=== PATIENT | male | born 1980 | race American Indian/Alaskan Native ===

== ENCOUNTER 2016-10-08 16:41 | Emergency (ER) | payer BC ==
[2016-10-08] MEDS ORDERED: NACL 0.9% 1000 ML 1,000 ML IV ONE (17:22)
[2016-10-08] MEDS ORDERED: ACTIDOSE-AQUA PO ONE (17:25)
[2016-10-08 17:37] LABS: Basophils % (Auto) 0.4 % (0.0-1.8); Hematocrit 45.1 % (35.5-45.6); Hemoglobin 14.6 gm/dl (11.8-15.2); Mean Corpuscular HGB Conc 33 % (32-34); Mean Corpuscular Hemoglobin 29 pg (28-32); Mean Corpuscular Volume 89 fl (84-94); Platelet Count 259 K/mm3 (140-440); Red Blood Count 5.07 M/mm3 (3.65-5.03); Red Cell Distribution Width 13.3 % (13.2-15.2); White Blood Count 15.1 K/mm3 (4.5-11.0)
[2016-10-08 17:47] LABS: Anion Gap 16 mmol/L; Blood Urea Nitrogen 9 mg/dL (9-20); Carbon Dioxide 30 mmol/L (22-30); Chloride 98.6 mmol/L (98-107); Glucose 94 mg/dL (75-100); Potassium 4.1 mmol/L (3.6-5.0); Sodium 140 mmol/L (137-145)
[2016-10-08 17:51] LABS: Alanine Aminotransferase 19 units/L (7-56); Albumin 3.7 g/dL (3.9-5); Albumin/Globulin Ratio 1.1 %; Alkaline Phosphatase 81 units/L (35-129); Total Protein 7.1 g/dL (6.3-8.2)
[2016-10-08 17:53] LABS: Urine Drugs of Abuse Note Disclamer
[2016-10-08 17:57] LABS: Bilirubin,Direct < 0.2 mg/dL (0-0.2); Bilirubin,Indirect 0.4 mg/dL; Salicylate < 0.3 mg/dL (2.8-20.0); Valproate 5.7 ug/mL (50-100)
[2016-10-08 18:07] LABS: Bilirubin,Urine NEG (Negative); Blood,Urine NEG (Negative); Ketones,Urine NEG (Negative); Leukocyte Esterase,Urine NEG (Negative); Mucus,Urine FEW /HPF; Nitrite,Urine NEG (Negative); Protein,Urine <15 mg/dL mg/dL (Negative)
--- NOTE | 2016-10-09 00:18 | Emergency Department Report ---
HPI - General Chief Complaint: Overdose Time Seen by Provider: 10/08/16 17:08 - HPI HPI: The patient is a 36-year-old male presents for evaluation of mental health. The patient reports intensely consuming 10 tablets of Depakote in an attempt to harm himself. He states that for the past 24 hrs he has experienced severe and constant sadness, exacerbated with arguing with his significant other. The patient denies fever, headache, unexplained weight loss or weight gain, heat or cold intolerance, skin, hair, or nail changes, neuro deficits, homicidal ideations, or auditory or visual hallucinations. ED Past Medical Hx - Past Medical History Previous Medical History?: Yes Hx Hypertension: Yes Hx Deep Vein Thrombosis: Yes Hx Headaches / Migraines: Yes (cluster lau) Additional medical history: superficial blood clots - Surgical History Past Surgical History?: Yes - Social History Smoking Status: Current Every Day Smoker Substance Use Type: None ED Review of Systems ROS: Stated complaint: POSS OD Other details as noted in HPI Constitutional: denies: fever ENT: denies: throat or neck pain Respiratory: denies: cough, shortness of breath Cardiovascular: denies: chest pain Endocrine: denies unexplained weight loss or gain Gastrointestinal: denies: abdominal pain, nausea Genitourinary: denies: dysuria Musculoskeletal: denies: leg swelling Skin: denies: rash Neurological: denies: headache Hematological/Lymphatic: denies: easy bleeding or easy bruising Psych: reports sadness or hopelessness Physical Exam - Physical Exam Vital Signs: Vital Signs 10/08/16 10/08/16 10/08/16 17:48 19:14 19:16 Temperature Pulse Rate 67 65 Respiratory 16 16 14 Rate Blood Pressure O2 Sat by Pulse 98 100 99 Oximetry 10/08/16 10/08/16 10/08/16 19:18 19:20 19:22 Temperature Pulse Rate 64 66 67 Respiratory 17 16 17 Rate Blood Pressure O2 Sat by Pulse 98 99 98 Oximetry 10/08/16 10/08/16 10/08/16 19:24 19:26 19:28 Temperature Pulse Rate 64 67 66 Respiratory 18 15 22 Rate Blood Pressure O2 Sat by Pulse 98 98 95 Oximetry 10/08/16 10/08/16 10/08/16 19:30 19:32 19:34 Temperature Pulse Rate 67 62 66 Respiratory 15 21 16 Rate Blood Pressure O2 Sat by Pulse 98 96 96 Oximetry 10/08/16 10/08/16 10/08/16 19:36 19:38 19:40 Temperature Pulse Rate 67 66 64 Respiratory 17 17 18 Rate Blood Pressure O2 Sat by Pulse 96 98 98 Oximetry 10/08/16 10/08/16 10/08/16 19:42 19:44 19:46 Temperature Pulse Rate 68 67 70 Respiratory 16 19 18 Rate Blood Pressure O2 Sat by Pulse 95 95 98 Oximetry 10/08/16 10/08/16 10/08/16 19:48 19:50 19:52 Temperature Pulse Rate 67 68 65 Respiratory 15 17 11 L Rate Blood Pressure O2 Sat by Pulse 95 95 99 Oximetry 10/08/16 10/08/16 10/08/16 19:54 19:56 19:58 Temperature Pulse Rate 66 65 64 Respiratory 13 18 13 Rate Blood Pressure O2 Sat by Pulse 97 99 98 Oximetry 10/08/16 10/08/16 10/08/16 20:00 20:02 20:04 Temperature Pulse Rate 71 75 78 Respiratory 18 18 25 H Rate Blood Pressure O2 Sat by Pulse 97 97 96 Oximetry 10/08/16 10/08/16 10/08/16 20:06 20:08 20:10 Temperature Pulse Rate 85 74 74 Respiratory 21 16 19 Rate Blood Pressure O2 Sat by Pulse 97 99 98 Oximetry 10/08/16 10/08/16 10/08/16 20:12 20:14 20:15 Temperature Pulse Rate 66 68 73 Respiratory 16 13 25 H Rate Blood Pressure 138/76 145/74 O2 Sat by Pulse 97 99 98 Oximetry 10/08/16 10/08/16 10/08/16 20:16 20:18 20:20 Temperature Pulse Rate 71 69 64 Respiratory 26 H 18 19 Rate Blood Pressure 145/74 145/74 145/74 O2 Sat by Pulse 96 96 96 Oximetry 10/08/16 10/08/16 10/08/16 20:22 20:23 20:24 Temperature Pulse Rate 74 72 67 Respiratory 17 15 14 Rate Blood Pressure 145/74 145/74 145/74 O2 Sat by Pulse 96 98 98 Oximetry 10/08/16 10/08/16 10/08/16 20:26 20:28 20:30 Temperature Pulse Rate 70 68 70 Respiratory 26 H 17 17 Rate Blood Pressure 145/74 145/74 145/74 O2 Sat by Pulse 94 97 94 Oximetry 10/08/16 10/08/16 10/08/16 20:32 20:34 20:36 Temperature Pulse Rate 60 63 64 Respiratory 12 15 17 Rate Blood Pressure 145/74 145/74 145/74 O2 Sat by Pulse 98 96 98 Oximetry 10/08/16 10/08/16 10/08/16 20:38 20:40 20:42 Temperature Pulse Rate 57 L 62 64 Respiratory 19 22 20 Rate Blood Pressure 145/74 145/74 145/74 O2 Sat by Pulse 98 91 96 Oximetry 10/08/16 10/08/16 10/08/16 20:44 20:46 20:48 Temperature Pulse Rate 63 63 64 Respiratory 13 13 17 Rate Blood Pressure 145/74 145/74 145/74 O2 Sat by Pulse 100 97 96 Oximetry 10/08/16 10/08/16 10/08/16 20:50 20:52 20:54 Temperature Pulse Rate 65 60 64 Respiratory 16 18 12 Rate Blood Pressure 145/74 145/74 145/74 O2 Sat by Pulse 99 98 97 Oximetry 10/08/16 10/08/16 10/08/16 20:56 20:58 21:00 Temperature Pulse Rate 62 61 60 Respiratory 12 13 14 Rate Blood Pressure 145/74 145/74 147/81 O2 Sat by Pulse 99 98 98 Oximetry 10/08/16 10/08/16 10/08/16 21:01 21:02 21:04 Temperature 98.2 F Pulse Rate 61 58 L 62 Respiratory 15 18 13 Rate Blood Pressure 147/81 147/81 147/81 O2 Sat by Pulse 98 96 99 Oximetry 10/08/16 10/08/16 10/08/16 21:06 21:08 21:10 Temperature Pulse Rate 58 L 66 61 Respiratory 23 22 20 Rate Blood Pressure 147/81 147/81 147/81 O2 Sat by Pulse 95 96 98 Oximetry 10/08/16 10/08/16 10/08/16 21:12 21:14 21:16 Temperature Pulse Rate 63 62 61 Respiratory 19 19 19 Rate Blood Pressure 147/81 147/81 147/81 O2 Sat by Pulse 100 97 93 Oximetry 10/08/16 10/08/16 10/08/16 21:18 21:20 21:22 Temperature Pulse Rate 63 63 64 Respiratory 21 18 15 Rate Blood Pressure 147/81 147/81 147/81 O2 Sat by Pulse 96 97 98 Oximetry 10/08/16 10/08/16 10/08/16 21:24 21:26 21:28 Temperature Pulse Rate 60 64 59 L Respiratory 18 21 21 Rate Blood Pressure 147/81 147/81 147/81 O2 Sat by Pulse 98 97 91 Oximetry 10/08/16 10/08/16 10/08/16 21:30 21:32 21:34 Temperature Pulse Rate 62 63 60 Respiratory 20 22 22 Rate Blood Pressure 147/81 147/81 147/81 O2 Sat by Pulse 98 94 96 Oximetry 10/08/16 10/08/16 10/08/16 21:36 21:38 21:40 Temperature Pulse Rate 55 L 62 61 Respiratory 12 27 H 21 Rate Blood Pressure 147/81 147/81 147/81 O2 Sat by Pulse 98 94 96 Oximetry 10/08/16 10/08/16 10/08/16 21:42 21:44 21:46 Temperature Pulse Rate 58 L 60 62 Respiratory 19 20 27 H Rate Blood Pressure 147/81 147/81 147/81 O2 Sat by Pulse 97 97 95 Oximetry 10/08/16 10/08/16 10/08/16 21:48 21:50 21:52 Temperature Pulse Rate 59 L 60 58 L Respiratory 22 16 19 Rate Blood Pressure 147/81 147/81 147/81 O2 Sat by Pulse 96 99 97 Oximetry 10/08/16 10/08/16 10/08/16 21:54 21:56 21:58 Temperature Pulse Rate 58 L 62 60 Respiratory 23 17 20 Rate Blood Pressure 147/81 147/81 147/81 O2 Sat by Pulse 96 97 100 Oximetry 10/08/16 10/08/16 10/08/16 22:00 22:01 22:02 Temperature Pulse Rate 63 58 L 57 L Respiratory 10 L 19 12 Rate Blood Pressure 136/81 136/81 136/81 O2 Sat by Pulse 99 99 99 Oximetry 10/08/16 10/08/16 10/08/16 22:04 22:06 22:08 Temperature Pulse Rate 63 59 L 65 Respiratory 22 12 15 Rate Blood Pressure 136/81 136/81 136/81 O2 Sat by Pulse 97 100 100 Oximetry 10/08/16 10/08/16 10/08/16 22:10 22:12 22:14 Temperature Pulse Rate 59 L 59 L 57 L Respiratory 20 22 13 Rate Blood Pressure 136/81 136/81 136/81 O2 Sat by Pulse 95 96 99 Oximetry 10/08/16 10/08/16 10/08/16 22:16 22:18 22:20 Temperature Pulse Rate 63 62 80 Respiratory 11 L 11 L 14 Rate Blood Pressure 136/81 136/81 136/81 O2 Sat by Pulse 99 99 66 L Oximetry 10/08/16 10/08/16 10/08/16 22:22 22:24 22:26 Temperature Pulse Rate 61 59 L 58 L Respiratory 16 12 11 L Rate Blood Pressure 136/81 136/81 136/81 O2 Sat by Pulse 98 99 100 Oximetry 10/08/16 10/08/16 10/08/16 22:28 22:30 22:32 Temperature Pulse Rate 65 65 69 Respiratory 16 17 11 L Rate Blood Pressure 136/81 136/81 136/81 O2 Sat by Pulse 99 100 100 Oximetry 10/08/16 10/08/16 10/08/16 22:34 22:36 22:38 Temperature Pulse Rate 67 64 60 Respiratory 12 11 L 11 L Rate Blood Pressure 136/81 136/81 136/81 O2 Sat by Pulse 100 99 97 Oximetry 10/08/16 10/08/16 10/08/16 22:40 22:42 22:44 Temperature Pulse Rate 59 L 61 62 Respiratory 16 12 14 Rate Blood Pressure 136/81 136/81 136/81 O2 Sat by Pulse 96 96 98 Oximetry 10/08/16 10/08/16 10/08/16 22:46 22:48 22:50 Temperature Pulse Rate 56 L 56 L 61 Respiratory 12 12 17 Rate Blood Pressure 136/81 136/81 136/81 O2 Sat by Pulse 93 95 98 Oximetry 10/08/16 10/08/16 10/08/16 22:52 22:54 22:56 Temperature Pulse Rate 58 L 65 60 Respiratory 18 20 16 Rate Blood Pressure 136/81 136/81 136/81 O2 Sat by Pulse 97 96 96 Oximetry 10/08/16 10/08/16 10/08/16 22:58 23:00 23:02 Temperature Pulse Rate 62 61 61 Respiratory 11 L 16 12 Rate Blood Pressure 136/81 130/75 130/75 O2 Sat by Pulse 97 98 99 Oximetry 10/08/16 10/08/16 10/08/16 23:04 23:06 23:08 Temperature Pulse Rate 57 L 60 60 Respiratory 13 12 14 Rate Blood Pressure 130/75 130/75 130/75 O2 Sat by Pulse 99 98 98 Oximetry 10/08/16 10/08/16 10/08/16 23:10 23:12 23:14 Temperature Pulse Rate 82 82 70 Respiratory 11 L 18 14 Rate Blood Pressure 130/75 130/75 130/75 O2 Sat by Pulse 100 98 100 Oximetry 10/08/16 10/08/16 23:16 23:18 Temperature Pulse Rate 66 73 Respiratory 13 14 Rate Blood Pressure 130/75 130/75 O2 Sat by Pulse 98 98 Oximetry Physical Exam: General: well-nourished, well-developed, no acute distress Head: Normocephalic, atraumatic Eyes: normal sclera ENT: Mucous membranes are pale and dry Neck: trachea midline, neck supple, No neck stiffness, no cervical adenopathy Respiratory: Breath sounds equal bilaterally, no wheezing, rales, or rhonchi Cardio: S1 and S2 present, no murmurs, rubs, gallops, capillary refill is delayed Abdomen: Normoactive bowel sounds, soft abdomen, no rigidity, no guarding or rebound tenderness Musc: No pitting edema Skin: No rash Neuro: no facial drooping, normal speech Psych: Flat affect, depressed mood, poor insight, positive suicidal ideation ED Course Vital Signs 10/08/16 10/08/16 10/08/16 17:48 19:14 19:16 Temperature Pulse Rate 67 65 Respiratory 16 16 14 Rate Blood Pressure O2 Sat by Pulse 98 100 99 Oximetry 10/08/16 10/08/16 10/08/16 19:18 19:20 19:22 Temperature Pulse Rate 64 66 67 Respiratory 17 16 17 Rate Blood Pressure O2 Sat by Pulse 98 99 98 Oximetry 10/08/16 10/08/16 10/08/16 19:24 19:26 19:28 Temperature Pulse Rate 64 67 66 Respiratory 18 15 22 Rate Blood Pressure O2 Sat by Pulse 98 98 95 Oximetry 10/08/16 10/08/16 10/08/16 19:30 19:32 19:34 Temperature Pulse Rate 67 62 66 Respiratory 15 21 16 Rate Blood Pressure O2 Sat by Pulse 98 96 96 Oximetry 10/08/16 10/08/16 10/08/16 19:36 19:38 19:40 Temperature Pulse Rate 67 66 64 Respiratory 17 17 18 Rate Blood Pressure O2 Sat by Pulse 96 98 98 Oximetry 10/08/16 10/08/16 10/08/16 19:42 19:44 19:46 Temperature Pulse Rate 68 67 70 Respiratory 16 19 18 Rate Blood Pressure O2 Sat by Pulse 95 95 98 Oximetry 10/08/16 10/08/16 10/08/16 19:48 19:50 19:52 Temperature Pulse Rate 67 68 65 Respiratory 15 17 11 L Rate Blood Pressure O2 Sat by Pulse 95 95 99 Oximetry 10/08/16 10/08/16 10/08/16 19:54 19:56 19:58 Temperature Pulse Rate 66 65 64 Respiratory 13 18 13 Rate Blood Pressure O2 Sat by Pulse 97 99 98 Oximetry 10/08/16 10/08/16 10/08/16 20:00 20:02 20:04 Temperature Pulse Rate 71 75 78 Respiratory 18 18 25 H Rate Blood Pressure O2 Sat by Pulse 97 97 96 Oximetry 10/08/16 10/08/16 10/08/16 20:06 20:08 20:10 Temperature Pulse Rate 85 74 74 Respiratory 21 16 19 Rate Blood Pressure O2 Sat by Pulse 97 99 98 Oximetry 10/08/16 10/08/16 10/08/16 20:12 20:14 20:15 Temperature Pulse Rate 66 68 73 Respiratory 16 13 25 H Rate Blood Pressure 138/76 145/74 O2 Sat by Pulse 97 99 98 Oximetry 10/08/16 10/08/16 10/08/16 20:16 20:18 20:20 Temperature Pulse Rate 71 69 64 Respiratory 26 H 18 19 Rate Blood Pressure 145/74 145/74 145/74 O2 Sat by Pulse 96 96 96 Oximetry 10/08/16 10/08/16 10/08/16 20:22 20:23 20:24 Temperature Pulse Rate 74 72 67 Respiratory 17 15 14 Rate Blood Pressure 145/74 145/74 145/74 O2 Sat by Pulse 96 98 98 Oximetry 10/08/16 10/08/16 10/08/16 20:26 20:28 20:30 Temperature Pulse Rate 70 68 70 Respiratory 26 H 17 17 Rate Blood Pressure 145/74 145/74 145/74 O2 Sat by Pulse 94 97 94 Oximetry 10/08/16 10/08/16 10/08/16 20:32 20:34 20:36 Temperature Pulse Rate 60 63 64 Respiratory 12 15 17 Rate Blood Pressure 145/74 145/74 145/74 O2 Sat by Pulse 98 96 98 Oximetry 10/08/16 10/08/16 10/08/16 20:38 20:40 20:42 Temperature Pulse Rate 57 L 62 64 Respiratory 19 22 20 Rate Blood Pressure 145/74 145/74 145/74 O2 Sat by Pulse 98 91 96 Oximetry 10/08/16 10/08/16 10/08/16 20:44 20:46 20:48 Temperature Pulse Rate 63 63 64 Respiratory 13 13 17 Rate Blood Pressure 145/74 145/74 145/74 O2 Sat by Pulse 100 97 96 Oximetry 10/08/16 10/08/16 10/08/16 20:50 20:52 20:54 Temperature Pulse Rate 65 60 64 Respiratory 16 18 12 Rate Blood Pressure 145/74 145/74 145/74 O2 Sat by Pulse 99 98 97 Oximetry 10/08/16 10/08/16 10/08/16 20:56 20:58 21:00 Temperature Pulse Rate 62 61 60 Respiratory 12 13 14 Rate Blood Pressure 145/74 145/74 147/81 O2 Sat by Pulse 99 98 98 Oximetry 10/08/16 10/08/16 10/08/16 21:01 21:02 21:04 Temperature 98.2 F Pulse Rate 61 58 L 62 Respiratory 15 18 13 Rate Blood Pressure 147/81 147/81 147/81 O2 Sat by Pulse 98 96 99 Oximetry 10/08/16 10/08/16 10/08/16 21:06 21:08 21:10 Temperature Pulse Rate 58 L 66 61 Respiratory 23 22 20 Rate Blood Pressure 147/81 147/81 147/81 O2 Sat by Pulse 95 96 98 Oximetry 10/08/16 10/08/16 10/08/16 21:12 21:14 21:16 Temperature Pulse Rate 63 62 61 Respiratory 19 19 19 Rate Blood Pressure 147/81 147/81 147/81 O2 Sat by Pulse 100 97 93 Oximetry 10/08/16 10/08/16 10/08/16 21:18 21:20 21:22 Temperature Pulse Rate 63 63 64 Respiratory 21 18 15 Rate Blood Pressure 147/81 147/81 147/81 O2 Sat by Pulse 96 97 98 Oximetry 10/08/16 10/08/16 10/08/16 21:24 21:26 21:28 Temperature Pulse Rate 60 64 59 L Respiratory 18 21 21 Rate Blood Pressure 147/81 147/81 147/81 O2 Sat by Pulse 98 97 91 Oximetry 10/08/16 10/08/16 10/08/16 21:30 21:32 21:34 Temperature Pulse Rate 62 63 60 Respiratory 20 22 22 Rate Blood Pressure 147/81 147/81 147/81 O2 Sat by Pulse 98 94 96 Oximetry 10/08/16 10/08/16 10/08/16 21:36 21:38 21:40 Temperature Pulse Rate 55 L 62 61 Respiratory 12 27 H 21 Rate Blood Pressure 147/81 147/81 147/81 O2 Sat by Pulse 98 94 96 Oximetry 10/08/16 10/08/16 10/08/16 21:42 21:44 21:46 Temperature Pulse Rate 58 L 60 62 Respiratory 19 20 27 H Rate Blood Pressure 147/81 147/81 147/81 O2 Sat by Pulse 97 97 95 Oximetry 10/08/16 10/08/16 10/08/16 21:48 21:50 21:52 Temperature Pulse Rate 59 L 60 58 L Respiratory 22 16 19 Rate Blood Pressure 147/81 147/81 147/81 O2 Sat by Pulse 96 99 97 Oximetry 10/08/16 10/08/16 10/08/16 21:54 21:56 21:58 Temperature Pulse Rate 58 L 62 60 Respiratory 23 17 20 Rate Blood Pressure 147/81 147/81 147/81 O2 Sat by Pulse 96 97 100 Oximetry 10/08/16 10/08/16 10/08/16 22:00 22:01 22:02 Temperature Pulse Rate 63 58 L 57 L Respiratory 10 L 19 12 Rate Blood Pressure 136/81 136/81 136/81 O2 Sat by Pulse 99 99 99 Oximetry 10/08/16 10/08/16 10/08/16 22:04 22:06 22:08 Temperature Pulse Rate 63 59 L 65 Respiratory 22 12 15 Rate Blood Pressure 136/81 136/81 136/81 O2 Sat by Pulse 97 100 100 Oximetry 10/08/16 10/08/16 10/08/16 22:10 22:12 22:14 Temperature Pulse Rate 59 L 59 L 57 L Respiratory 20 22 13 Rate Blood Pressure 136/81 136/81 136/81 O2 Sat by Pulse 95 96 99 Oximetry 10/08/16 10/08/16 10/08/16 22:16 22:18 22:20 Temperature Pulse Rate 63 62 80 Respiratory 11 L 11 L 14 Rate Blood Pressure 136/81 136/81 136/81 O2 Sat by Pulse 99 99 66 L Oximetry 10/08/16 10/08/16 10/08/16 22:22 22:24 22:26 Temperature Pulse Rate 61 59 L 58 L Respiratory 16 12 11 L Rate Blood Pressure 136/81 136/81 136/81 O2 Sat by Pulse 98 99 100 Oximetry 10/08/16 10/08/16 10/08/16 22:28 22:30 22:32 Temperature Pulse Rate 65 65 69 Respiratory 16 17 11 L Rate Blood Pressure 136/81 136/81 136/81 O2 Sat by Pulse 99 100 100 Oximetry 10/08/16 10/08/16 10/08/16 22:34 22:36 22:38 Temperature Pulse Rate 67 64 60 Respiratory 12 11 L 11 L Rate Blood Pressure 136/81 136/81 136/81 O2 Sat by Pulse 100 99 97 Oximetry 10/08/16 10/08/16 10/08/16 22:40 22:42 22:44 Temperature Pulse Rate 59 L 61 62 Respiratory 16 12 14 Rate Blood Pressure 136/81 136/81 136/81 O2 Sat by Pulse 96 96 98 Oximetry 10/08/16 10/08/16 10/08/16 22:46 22:48 22:50 Temperature Pulse Rate 56 L 56 L 61 Respiratory 12 12 17 Rate Blood Pressure 136/81 136/81 136/81 O2 Sat by Pulse 93 95 98 Oximetry 10/08/16 10/08/16 10/08/16 22:52 22:54 22:56 Temperature Pulse Rate 58 L 65 60 Respiratory 18 20 16 Rate Blood Pressure 136/81 136/81 136/81 O2 Sat by Pulse 97 96 96 Oximetry 10/08/16 10/08/16 10/08/16 22:58 23:00 23:02 Temperature Pulse Rate 62 61 61 Respiratory 11 L 16 12 Rate Blood Pressure 136/81 130/75 130/75 O2 Sat by Pulse 97 98 99 Oximetry 10/08/16 10/08/16 10/08/16 23:04 23:06 23:08 Temperature Pulse Rate 57 L 60 60 Respiratory 13 12 14 Rate Blood Pressure 130/75 130/75 130/75 O2 Sat by Pulse 99 98 98 Oximetry 10/08/16 10/08/16 10/08/16 23:10 23:12 23:14 Temperature Pulse Rate 82 82 70 Respiratory 11 L 18 14 Rate Blood Pressure 130/75 130/75 130/75 O2 Sat by Pulse 100 98 100 Oximetry 10/08/16 10/08/16 23:16 23:18 Temperature Pulse Rate 66 73 Respiratory 13 14 Rate Blood Pressure 130/75 130/75 O2 Sat by Pulse 98 98 Oximetry ED Medical Decision Making - Lab Data Result diagrams: 10/08/16 17:16 10/08/16 17:16 - Medical Decision Making The patient was seen and examined by myself. The patient is placed on a threat monitoring analyst and continuous pulse ox. On initial evaluation, the patient was found to be in no distress. Evaluation orders are placed. IV access is established and the patient is given 1 L normal saline fluid bolus for she would 've dehydration. Lab results were non-concerning including WBC, hemoglobin, hematocrit, electrolytes, renal function, LFTs, lipase, and urinalysis. Poison control was contacted. They recommended repeat Depakote level at least 4 hours after ingestion. Repeat Depakote level is obtained. Repeat Depakote level is revealed to be 47, below concerning range. Poison control recommended repeat depakote levels until no longer up trending. 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 10/09 1600: Patient repeat depakote levels no longer up trending and is now down trending to 66 from 71. Additionally, ammonia level no longer up trending. The patient is now medically clear. Mental health is consulted. Mental health evaluated the patient and agrees that the patient is at risk of harm to self. A 1013 is completed. The patient will be admitted to a psychiatric facility once bed placement is obtained. Critical care attestation.: If time is entered above; I have spent that time in minutes in the direct care of this critically ill patient, excluding procedure time. ED Disposition Clinical Impression: Suicidal behavior with attempted self-injury, Dehydration Disposition: DC/TX PSY HOSP/PSY UNIT Is pt being admited?: No Does the pt Need Aspirin: No Condition: Stable Referrals: PRIMARY CARE, [Primary Care Provider] - 3-5 Days Time of Disposition: 00:41
[2016-10-09 02:32] LABS: Alanine Aminotransferase 17 units/L (7-56); Albumin 3.4 g/dL (3.9-5); Albumin/Globulin Ratio 1.1 %; Alkaline Phosphatase 72 units/L (35-129); Total Protein 6.6 g/dL (6.3-8.2)
[2016-10-09 02:38] LABS: Bilirubin,Direct < 0.2 mg/dL (0-0.2); Bilirubin,Indirect 0.6 mg/dL
[2016-10-09] MEDS ORDERED: ALUM-MAG HYDROX-SIMETH 200-200-20MG/5ML PO PRN (02:45)
[2016-10-09] MEDS ORDERED: MILK OF MAGNESIA PO PRN (02:45)
[2016-10-09] MEDS ORDERED: ATIVAN IV PRN (02:45)
--- NOTE | 2016-10-09 12:02 | Consultation ---
History of Present Illness - Reason for Consult Consult date: 10/09/16 Reason for consult: Mental Health Evaluation Requesting physician: MARC QUEEN - Chief Complaint Chief complaint: "I just want to go home" - History of Present Psychiatric Illness The patient is a 36-year-old male presents for evaluation of mental health. The patient reports intensely consuming 10 tablets of Depakote in an attempt to harm himself. Today patient is irritable and uncooperative during the assessment. He did mention that he wanted to kill himself yesterday when he took the pills (Depakote/Klonopin), but stated, "I am good now and I need to go home." After he stated that he want to go home, he refused to answer anymore questions. Medications and Allergies Allergies Allergy/AdvReac Type Severity Reaction Status Date / Time shellfish derived Allergy Anaphylaxis Verified 01/16/16 01:12 Active Meds: Active Medications Al Hydrox/Mg Hydrox/Simethicone (Alum-Mag Hydrox-Simeth [id number]) 30 ml PO Q4HR PRN PRN Reason: Indigestion Lorazepam (Ativan) 1 mg IV PRN PRN PRN Reason: Agitation Magnesium Hydroxide (Milk Of Magnesia) 30 ml PO Q12HR PRN PRN Reason: Constipation Past psychiatric history - Past Medical History Past Medical History: other (unable to obtain) Past Surgical History: Other (unable to obtain) - past Psychiatric treatment and history psychiatric treatment history: Patient refused to discuss psy hx or fam psy hx. - Social History Social history: Mental Status Exam - Vital signs Last Vital Signs Temp 98.2 F 10/08/16 21:02 Pulse 60 10/09/16 04:00 Resp 17 10/09/16 04:00 BP 158/87 10/09/16 06:00 Pulse Ox 96 10/09/16 06:00 - Exam Narrative exam: ROS: (-) depression, (+) psychosis/manic MSE; Appearance: uncooperative Behavior: poor eye contact Speech: regular rate and tone Mood: "I'm okay" Affect: congruent to mood Thought Process: circumstantial Thought Content: denies SI/HI's and AVH's Motor Activity: lying in bed Cognition: a/ox 3 Insight: poor Judgment: poor Results Result Diagrams: 10/08/16 17:16 10/08/16 17:16 Abnormal lab results 10/08/16 10/08/16 10/08/16 Range/Units 17:16 17:16 17:16 WBC 15.1 H (4.5-11.0) K/mm3 RBC 5.07 H (3.65-5.03) M/mm3 [place] # 0.9 H (0.0-0.8) K/mm3 Seg Neutrophils # 10.3 H (1.8-7.7) K/mm3 Ammonia (25-60) umol/L Albumin 3.7 L (3.9-5) g/dL Salicylates < 0.3 L (2.8-20.0) mg/dL Valproic Acid 5.7 L (50-100) ug/mL 10/08/16 10/08/16 10/09/16 Range/Units 17:16 23:00 01:51 WBC (4.5-11.0) K/mm3 RBC (3.65-5.03) M/mm3 [place] # (0.0-0.8) K/mm3 Seg Neutrophils # (1.8-7.7) K/mm3 Ammonia 71.0 H (25-60) umol/L Albumin (3.9-5) g/dL Salicylates (2.8-20.0) mg/dL Valproic Acid 5.5 L 47.6 L (50-100) ug/mL 10/09/16 Range/Units 01:51 WBC (4.5-11.0) K/mm3 RBC (3.65-5.03) M/mm3 [place] # (0.0-0.8) K/mm3 Seg Neutrophils # (1.8-7.7) K/mm3 Ammonia (25-60) umol/L Albumin 3.4 L (3.9-5) g/dL Salicylates (2.8-20.0) mg/dL Valproic Acid (50-100) ug/mL All other labs normal. Assessment and Plan Assessment and plan: Impression: Unspecified Mood DO, Hx of Schizoaffective DO. The patient is a 36- year-old male presents for evaluation of mental health. The patient reports intensely consuming 10 tablets of Depakote in an attempt to harm himself. Today patient is irritable and uncooperative and during the assessment. He did mention that he wanted to kill himself yesterday, but stated, "I am good now and I need to go home." Patient is a possible flight risk. Last [facility] 66.4. Recommendation/Plan: Continue 1013 with placement to inpatient psy services once medically cleared.
[2016-10-09 19:01] VITALS: BP 114/60
[2016-10-09] MEDS ORDERED: HABITROL TD ONE (20:00)
== END 2016-10-09 21:04 ==
LOC: ED 16:41
DX: T42.6X2A Poisoning by other antiepileptic and sedative-hypnotic drugs, intentional self-harm, initial encounter (principal); E86.0 Dehydration; I10 Essential (primary) hypertension; F17.200 Nicotine dependence, unspecified, uncomplicated; Y92.89 Other specified places as the place of occurrence of the external cause; Z86.718 Personal history of other venous thrombosis and embolism
CPT/HCPCS: 36415; 80048; 80074; 80164; 80307; 81001; 82140; 83690; 85025; 93005; 93010; 96360; 99285; G0480; J7030; 80320

== ENCOUNTER 2022-01-22 17:50 | Emergency (ER) | payer BC ==
[2022-01-22 18:04] VITALS: BP 149/81
[2022-01-22 19:30] LABS: Basophils # (Auto) 0.1 K/mm3 (0.0-0.1); Basophils % (Auto) 0.5 % (0.0-1.8); Eosinophils # (Auto) 0.2 K/mm3 (0.0-0.4); Eosinophils % (Auto) 2.3 % (0.0-4.3); Hematocrit 41.5 % (35.5-45.6); Hemoglobin 13.7 gm/dl (11.8-15.2); Lymphocytes % (Auto) 29.2 % (13.4-35.0); Mean Corpuscular HGB Conc 33 % (32-34); Mean Corpuscular Volume 88 fl (84-94); Monocytes # (Auto) 0.9 K/mm3 (0.0-0.8); Monocytes % (Auto) 8.2 % (0.0-7.3); Platelet Count 230 K/mm3 (140-440); Red Blood Count 4.71 M/mm3 (3.65-5.03); Red Cell Distribution Width 13.1 % (13.2-15.2)
[2022-01-22 19:46] LABS: Alanine Aminotransferase 13 units/L (7-56); Albumin 4.5 g/dL (3.9-5); BUN/Creatinine Ratio 11; Blood Urea Nitrogen 11 mg/dL (9-20); Calcium 9.4 mg/dL (8.4-10.2); Hemolysis Index 11
[2022-01-23] MEDS ORDERED: SODIUM CHLORIDE 0.9% 1000 ML 1,000 ML IV ONE (15:05)
== END 2022-01-23 00:53 | disposition left against medical advice (07) ==
LOC: ED 17:50
DX: R73.9 Hyperglycemia, unspecified (principal); Z53.21 Procedure and treatment not carried out due to patient leaving prior to being seen by health care provider
CPT/HCPCS: 36415; 80048; 80053; 82962; 85025